=== PATIENT | female | born 1980 | race Caucasian/White ===

== ENCOUNTER 2018-03-31 11:34 | Emergency (ER) | payer BC ==
[~2018-03-31] VITALS: Ht 172.7 cm; Wt 89.0 kg
[2018-03-31] MEDS ORDERED: benzonatate 100mg capsule PO ONE (12:10)
[2018-03-31] MEDS ORDERED: predniSONE 20 mg tablet PO ONE (12:10)
[2018-03-31] MEDS ORDERED: diphenhydrAMINE 25mg capsule PO ONE (12:10)
[2018-03-31] MEDS ORDERED: famotidine 20mg tablet PO ONE (12:10)
[2018-03-31] MEDS ORDERED: BENZ-16 PO (12:31)
[2018-03-31] MEDS ORDERED: DIPH25CA83 PO (12:31)
[2018-03-31] MEDS ORDERED: PRED20TA PO (12:31)
[2018-03-31] MEDS ORDERED: FAMO-128 PO (12:31)
[2018-03-31 12:41] VITALS: BP 110/74
== END 2018-03-31 12:43 | disposition home or self-care (01) ==
LOC: ER 11:35 → EDBD 11:35 → ER 12:43
DX: T78.40XA Allergy, unspecified, initial encounter (principal); J40 Bronchitis, not specified as acute or chronic; F17.200 Nicotine dependence, unspecified, uncomplicated; Z79.899 Other long term (current) drug therapy; X58.XXXA Exposure to other specified factors, initial encounter
CPT/HCPCS: 71046; 99284; J7512; Q0163

== ENCOUNTER 2018-07-25 17:36 | Emergency (ER) | payer BC, MEDICAID ==
[~2018-07-25] VITALS: Ht 172.7 cm; Wt 97.5 kg
[~2018-07-25 17:36] MED LIST: DIPH25CA83 PO; FAMO-128 PO
[2018-07-25 18:02] LABS: BASOPHILS # (AUTO) 0.1 X10'3 (0-0.2); BASOPHILS % (AUTO) 1.1 % (0-1); EOSINOPHILS # (AUTO) 0.1 X10'3 (0-0.9); EOSINOPHILS % (AUTO) 1.4 % (0-6); HEMATOCRIT 33.1 % (35.0-45.0); HEMOGLOBIN 10.9 g/dl (12.0-16.0); LYMPHOCYTES # (AUTO) 2.1 X10'3 (1.1-4.8); LYMPHOCYTES % (AUTO) 25.6 % (21-51); MEAN CORPUSCULAR HEMOGLOBIN 24.5 PG (27.0-31.0); MEAN CORPUSCULAR VOLUME 74.2 FL (78-98); MEAN PLATELET VOLUME 8.1 FL (7.4-10.4); MONOCYTES # (AUTO) 0.6 X10'3 (0-0.9); MONOCYTES % (AUTO) 7.4 % (2-12); NEUTROPHILS # (AUTO) 5.4 X10'3 (1.8-7.7); NEUTROPHILS % (AUTO) 64.5 % (42-75); PLATELET COUNT 337 X10'3 (140-440); RED BLOOD COUNT 4.46 X10'6 (4.20-5.60); RED CELL DISTRIBUTION WIDTH 16.5 % (11.5-14.5); WHITE BLOOD COUNT 8.3 X10'3 (4.5-11.0)
[2018-07-25 18:18] LABS: ALANINE AMINOTRANSFERASE 20 U/L (12-78); ALBUMIN 3.8 G/DL (3.4-5.0); ALKALINE PHOSPHATASE 86 IU/L (46-116); ANION GAP 4 (8-16); ASPARTATE AMINO TRANSFERASE 17 U/L (10-37); BILIRUBIN,TOTAL 0.4 MG/DL (0.1-1.0); BLOOD UREA NITROGEN 10 MG/DL (7-18); BUN/CREATININE RATIO 11.5 (6.6-38.0); CALCIUM 8.8 MG/DL (8.5-10.1); CHLORIDE 105 MMOL/L (99-107); CREATININE 0.87 MG/DL (0.40-0.90); GLUCOSE 95 MG/DL (70-104); POTASSIUM 3.6 MMOL/L (3.5-5.1); SODIUM 139 MMOL/L (135-145); TOTAL PROTEIN 7.6 G/DL (6.4-8.2); eGFR 73 ML/MIN
[2018-07-25 18:32] LABS: PARTIAL THROMBOPLASTIN TIME 29 SECONDS (22-32)
[2018-07-25 19:59] VITALS: BP 130/70
[2018-07-25] MEDS ORDERED: ketorolac trometh inj. 60 MG/2 ML VIAL IM ONE (20:25)
[2018-07-25] MEDS ORDERED: HYDROcodone/acetaminophen 10/325mg tab PO ONE (20:25)
[2018-07-25] MEDS ORDERED: HYDR-4383 PO (20:25)
== END 2018-07-25 20:52 | disposition home or self-care (01) ==
LOC: ER 17:37
DX: R07.89 Other chest pain (principal); F17.200 Nicotine dependence, unspecified, uncomplicated; Z98.51 Tubal ligation status
CPT/HCPCS: 36415; 71045; 80053; 84484; 85025; 85610; 85730; 93005; 96372; 99285; J1885

== ENCOUNTER 2019-10-31 20:06 | Emergency (ER) | payer MEDICAID ==
[~2019-10-31] VITALS: Ht 172.7 cm; Wt 102.7 kg
[~2019-10-31 20:06] MED LIST changes: +HYDR-4383 PO
[2019-10-31 20:18] VITALS: BP 157/67
[2019-10-31] MEDS ORDERED: cyclobenzaprine 10mg tablet PO ONE (21:30)
[2019-10-31] MEDS ORDERED: LIDOcaine 5% patch TP ONE (21:30)
== END 2019-10-31 22:24 | disposition home or self-care (01) ==
LOC: ER 20:06
DX: M54.5 Low back pain (principal); R20.2 Paresthesia of skin; M79.7 Fibromyalgia; Z98.51 Tubal ligation status; Z88.0 Allergy status to penicillin; Z88.1 Allergy status to other antibiotic agents; Z79.899 Other long term (current) drug therapy
CPT/HCPCS: 99283

== ENCOUNTER → 2020-01-12 | Emergency (ER) | payer MEDICAID ==
[~2020-01-12] VITALS: Ht 175.3 cm; Wt 95.5 kg
[~2020-01-12] MED LIST changes: +BENZ-16 PO
[2020-01-12 17:40] VITALS: BP 129/85
== END | disposition home or self-care (01) ==
LOC: ER 17:40
DX: J06.9 Acute upper respiratory infection, unspecified (principal); J45.909 Unspecified asthma, uncomplicated; M79.7 Fibromyalgia; Z98.51 Tubal ligation status; Z88.0 Allergy status to penicillin; Z88.1 Allergy status to other antibiotic agents
CPT/HCPCS: 71045; 99283

== ENCOUNTER 2022-08-31 19:16 | Inpatient (IN) | payer MEDICAID ==
[~2022-08-31] VITALS: Ht 172.7 cm; Wt 104.0 kg
[~2022-08-31 19:16] MED LIST changes: -BENZ-16 PO
[2022-08-31 20:36] LABS: BASOPHILS # (AUTO) 0.1 X10'3 (0-0.2); BASOPHILS % (AUTO) 0.8 % (0-1); EOSINOPHILS # (AUTO) 0.2 X10'3 (0-0.9); EOSINOPHILS % (AUTO) 1.1 % (0-6); HEMOGLOBIN 13.7 g/dl (12.0-16.0); LYMPHOCYTES # (AUTO) 2.4 X10'3 (1.1-4.8); LYMPHOCYTES % (AUTO) 15.8 % (21-51); MEAN CORPUSCULAR HEMOGLOBIN 29.6 PG (27.0-31.0); MEAN CORPUSCULAR HGB CONC 33.4 g/dL (33.0-36.5); MEAN CORPUSCULAR VOLUME 88.6 FL (78-98); MEAN PLATELET VOLUME 8.4 FL (7.4-10.4); MONOCYTES % (AUTO) 6.7 % (2-12); NEUTROPHILS # (AUTO) 11.5 X10'3 (1.8-7.7); NEUTROPHILS % (AUTO) 75.6 % (42-75); PLATELET COUNT 284 X10'3 (140-440); RED BLOOD COUNT 4.62 X10'6 (4.20-5.60); RED CELL DISTRIBUTION WIDTH 13.8 % (11.5-14.5); WHITE BLOOD COUNT 15.2 X10'3 (4.5-11.0)
[2022-08-31 20:39] LABS: URINE HCG NEGATIVE (NEG)
[2022-08-31 20:43] LABS: CLARITY,URINE SLIGHTLY CLOUDY (Clear); COLOR,URINE YELLOW (Yellow); GLUCOSE, URINE NEGATIVE (Neg); KETONES,URINE NEGATIVE (Neg); LEUKOCYTE ESTERASE ,URINE TRACE (Neg); NITRITES, URINE NEGATIVE (Neg); OCCULT BLOOD,URINE MODERATE (Neg); PH,URINE 5.5 (4.8-8.0); PROTEIN,URINE NEGATIVE (Neg); UA COLLECTION TYPE CLN CATCH MIDSTREAM; UROBILINOGEN,URINE 0.2 E.U/dL (0.2-1.0)
[2022-08-31 20:48] LABS: ALANINE AMINOTRANSFERASE 13 U/L (12-78); ALBUMIN 3.7 G/DL (3.4-5.0); ALBUMIN/GLOBULIN RATIO 1.1 (1.1-1.5); ALKALINE PHOSPHATASE 95 IU/L (46-116); ANION GAP 12 (8-16); ASPARTATE AMINO TRANSFERASE 12 U/L (10-37); BILIRUBIN,TOTAL 0.3 MG/DL (0.1-1.0); BLOOD UREA NITROGEN 10 MG/DL (7-18); CALCIUM 8.9 MG/DL (8.5-10.1); CHLORIDE 105 MMOL/L (99-107); GLUCOSE 103 MG/DL (70-104); LIPASE 78 U/L (73-393); POTASSIUM 3.6 MMOL/L (3.5-5.1); SODIUM 139 MMOL/L (135-145); TOTAL CARBON DIOXIDE 22.2 MMOL/L (24-32); TOTAL PROTEIN 7.2 G/DL (6.4-8.2); eGFR 61 ML/MIN
[2022-08-31 20:52] LABS: BACTERIA,URINE FEW /HPF (Neg); MUCUS STRANDS FEW /LPF (Neg); SQUAMOUS EPITHELIAL CELL,UR FEW /LPF (FEW); URIC ACID CRYSTALS FEW /HPF (NEGATIVE); WBC,URINE 0-4 /HPF (0-4)
[2022-09-01] VITALS (15 sets, daily range): BP systolic 87–122; BP diastolic 51–73
[2022-09-01] MEDS ORDERED: ondansetron 4mg rapidly disintigrating tab PO ONE (03:40)
[2022-09-01] MEDS ORDERED: HYDROcodone/acetaminophen 5mg/325mg tablet PO ONE (03:40)
[2022-09-01] MEDS ORDERED: ketorolac trometh inj. 60 MG/2 ML VIAL IM ONE (03:40)
[2022-09-01] MEDS ORDERED: clindamycin 600mg/D5W 50ml 50 ML IV ONE (05:25)
[2022-09-01] MEDS ORDERED: vancomycin/NS 1 GM ADD-VANTAGE 250 ML IV ONE (05:25)
[2022-09-01] MEDS ORDERED: CefTRIAXone/D5W-Rocephin 1gm 50 ML IV ONE (05:25)
[2022-09-01] MEDS ORDERED: acetaminophen 650mg rectal suppository RC PRN (06:00)
[2022-09-01] MEDS ORDERED: bisacodyl 10mg suppository rectal RC PRN (06:00)
[2022-09-01] MEDS ORDERED: magnesium hydroxide 30ml (MOM) UD suspension PO PRN (06:00)
[2022-09-01] MEDS ORDERED: ondansetron/PF 4mg/2ml inj IV PRN ×2 (06:00→17:40)
[2022-09-01] MEDS ORDERED: HYDROcodone/acetaminophen 5mg/325mg tablet PO PRN (06:00)
[2022-09-01] MEDS ORDERED: diphenhydrAMINE 25mg capsule PO PRN (06:00)
[2022-09-01] MEDS ORDERED: morphine 2 MG/ML inj. syringe IV PRN ×2 (06:00→17:40)
[2022-09-01] MEDS ORDERED: ondansetron 4mg rapidly disintigrating tab PO PRN (06:00)
[2022-09-01] MEDS ORDERED: diphenhydrAMINE 50 mg/ml inj IV PRN (06:00)
[2022-09-01] MEDS ORDERED: acetaminophen 325mg tablet PO PRN ×2 (06:00)
[2022-09-01] MEDS ORDERED: mag hydrox/Alum hydrox/simeth 30ml oral suspension PO PRN (06:00)
[2022-09-01] MEDS: normal saline 1000ml 1,000 ML IV SCH ×2 (06:43→15:55)
[2022-09-01] MEDS: morphine 2 MG/ML inj. syringe IV PRN ×3 (07:42→16:50)
[2022-09-01] MEDS: docusate sod 100mg capsule PO SCH ×2 (07:50→20:12)
[2022-09-01 08:12] LABS: APTT 30 SECONDS (22-32)
[2022-09-01 08:23] LABS: MAGNESIUM 2.3 MG/DL (1.5-2.4)
[2022-09-01] MEDS: pantoprazole 40MG/NS 100ML BAG 100 ML IV SCH (08:51)
[2022-09-01] MEDS: CefTRIAXone/D5W-Rocephin 1gm 50 ML IV SCH (10:38)
[2022-09-01] MEDS ORDERED: TOPI50TA24 PO (13:42)
[2022-09-01] MEDS ORDERED: SUMA100T16 PO (13:42)
[2022-09-01] MEDS ORDERED: FERR325T29 PO (13:42)
[2022-09-01] MEDS ORDERED: LAMO200T10 PO (13:42)
[2022-09-01] MEDS ORDERED: CETI10TA14 PO (13:43)
[2022-09-01] MEDS ORDERED: SUMAtriptan 25 MG tablet PO PRN (16:30)
[2022-09-01] MEDS ORDERED: BUPIVAcaine/PF 2.5 mg/ml (0.25%) 30ml vial ONE (17:39)
[2022-09-01] MEDS ORDERED: hydrALAZINE 20mg/ml inj. IV PRN (17:40)
[2022-09-01] MEDS ORDERED: morphine 4 MG/ML inj SYRINge IV PRN (17:40)
[2022-09-01] MEDS ORDERED: ringers solution, lacted 1,000 ML IV SCH (17:40)
[2022-09-01] MEDS ORDERED: HYDROmorphone/PF 0.2 MG/ML SYRINGE IV PRN (17:40)
[2022-09-01] MEDS ORDERED: labetalol 20mg/4ml (5mg/ml) syringe IV PRN (17:40)
--- NOTE | 2022-09-01 17:43 | NUR ---
OR picked up pt around 1730
[2022-09-01] MEDS ORDERED: midazolam 1 mg/ML 2ml injection ONE (17:58)
[2022-09-01] MEDS ORDERED: fentaNYL/PF 50MCG/1 ML 2ML syringe ONE (17:58)
[2022-09-01] MEDS ORDERED: LIDOcaine 1%/PF 5ML 10 MG/ML VIAL ONE (18:08)
[2022-09-01] MEDS ORDERED: ondansetron/PF 4mg/2ml inj ONE (18:09)
[2022-09-01] MEDS ORDERED: rocuronium 10mg/ml inj IV ONE (18:09)
[2022-09-01] MEDS ORDERED: propofol inj 20 ML IV ONE (18:09)
[2022-09-01] MEDS ORDERED: neostigmine methylsulfate 1 MG/ML 10ml vial ONE (18:11)
[2022-09-01] MEDS ORDERED: glycopyrrolate 0.2mg/ml inj ONE (18:12)
[2022-09-01] MEDS ORDERED: acetaminophen 1,000mg/100ml IV 100 ML IV ONE (18:27)
--- NOTE | 2022-09-01 18:45 | NUR ---
Received from OR via [facility]THO BED WITH [facility] , accompanied by Anesthesiologist CASTILLO and report given by Anesthesiolgist. PATIENT WITH 20G PIV IN RIGHT UE RUNNING LR AT 100. 3 LAP SITES TO ABDOMEN AND POKE SITES FROM LOCAL. VSS WITH PVCS PRESENT. MD CHONG AWARE AT THIS TIME. NON VERBAL PAIN SCALE OF 0 USED AT THIS TIME. Addendum: 09/01/22 at 1900 by Robin Al RN, RN Amended: Links added.
[2022-09-01] MEDS: HYDROmorphone/PF 0.2 MG/ML SYRINGE IV PRN ×2 (19:10→19:20)
[2022-09-01] MEDS: HYDROcodone/acetaminophen 10/325mg tab PO PRN (20:13)
[2022-09-01] MEDS ORDERED: temazepam 15mg capsule PO PRN (21:00)
[2022-09-02] VITALS: BP 110/73
[2022-09-02] MEDS: normal saline 1000ml 1,000 ML IV SCH ×2 (00:13→09:14)
[2022-09-02] MEDS: HYDROcodone/acetaminophen 10/325mg tab PO PRN (00:17)
--- NOTE | 2022-09-02 00:21 | NUR ---
MEDICATED FOR PAIN AND WARM BLANKET GIVEN TO THE PT.
[2022-09-02 02:00] VITALS: BP 105/58
--- NOTE | 2022-09-02 04:00 | NUR ---
awoke up with assist to brp voided noted pt just started her peroid pad given mod amount of drainage. after skin care done peripad applied up in the bonilla ambulated 2 laps.
[2022-09-02 06:22] LABS: BASOPHILS % (AUTO) 0.2 % (0-1); EOSINOPHILS % (AUTO) 0 % (0-6); HEMATOCRIT 42.3 % (35.0-45.0); HEMOGLOBIN 13.7 g/dl (12.0-16.0); LYMPHOCYTES # (AUTO) 0.9 X10'3 (1.1-4.8); LYMPHOCYTES % (AUTO) 7.8 % (21-51); MEAN CORPUSCULAR HEMOGLOBIN 29.4 PG (27.0-31.0); MEAN CORPUSCULAR HGB CONC 32.5 g/dL (33.0-36.5); MEAN CORPUSCULAR VOLUME 90.5 FL (78-98); MEAN PLATELET VOLUME 9.6 FL (7.4-10.4); MONOCYTES # (AUTO) 0.2 X10'3 (0-0.9); MONOCYTES % (AUTO) 1.2 % (2-12); NEUTROPHILS # (AUTO) 11.1 X10'3 (1.8-7.7); NEUTROPHILS % (AUTO) 90.8 % (42-75); PLATELET COUNT 294 X10'3 (140-440); RED BLOOD COUNT 4.67 X10'6 (4.20-5.60); RED CELL DISTRIBUTION WIDTH 13.8 % (11.5-14.5); WHITE BLOOD COUNT 12.2 X10'3 (4.5-11.0)
--- NOTE | 2022-09-02 06:34 | NUR ---
Problems reprioritized. Patient report given, questions answered & plan of care reviewed with ALFREDA. Addendum: 09/02/22 at 0635 by Radha Thomas RN Amended: Links added.
[2022-09-02 06:40] LABS: ALANINE AMINOTRANSFERASE 12 U/L (12-78); ALBUMIN 3.3 G/DL (3.4-5.0); ALBUMIN/GLOBULIN RATIO 0.9 (1.1-1.5); ALKALINE PHOSPHATASE 90 IU/L (46-116); ANION GAP 13 (8-16); ASPARTATE AMINO TRANSFERASE 12 U/L (10-37); BILIRUBIN,TOTAL 0.5 MG/DL (0.1-1.0); BLOOD UREA NITROGEN 10 MG/DL (7-18); BUN/CREATININE RATIO 10.5 (6.6-38.0); CALCIUM 8.5 MG/DL (8.5-10.1); CHLORIDE 105 MMOL/L (99-107); CREATININE 0.95 MG/DL (0.40-0.90); GLUCOSE 125 MG/DL (70-104); POTASSIUM 4.3 MMOL/L (3.5-5.1); SODIUM 137 MMOL/L (135-145); TOTAL CARBON DIOXIDE 18.9 MMOL/L (24-32); TOTAL PROTEIN 7.1 G/DL (6.4-8.2); eGFR 64 ML/MIN
[2022-09-02 08:00] VITALS: BP 85/42
[2022-09-02] MEDS ORDERED: ferrous sulfate 325mg tablet PO SCH (08:00)
[2022-09-02] MEDS ORDERED: cetirizine 10mg tablet PO SCH (08:00)
[2022-09-02] MEDS ORDERED: topiramate 25mg tablet PO SCH (08:00)
[2022-09-02] MEDS ORDERED: lamoTRIgine 100mg tablet PO SCH (08:00)
[2022-09-02] MEDS: HYDROmorphone inj. 0.5 MG/0.5 ML DISP.SYRIN IV PRN ×2 (08:03→13:05)
[2022-09-02] MEDS: docusate sod 100mg capsule PO SCH (08:09)
[2022-09-02] MEDS: pantoprazole 40MG/NS 100ML BAG 100 ML IV SCH (08:10)
[2022-09-02] MEDS: CefTRIAXone/D5W-Rocephin 1gm 50 ML IV SCH (09:07)
[2022-09-02] MEDS ORDERED: VILA20TA2 PO (11:55)
[2022-09-02] MEDS ORDERED: OXYC-145 PO (14:50)
--- NOTE | 2022-09-02 15:15 | NUR ---
PATIENT DISCHARGED HOME WITH . PATIENT STATES UNDERSTANDING OF DISCHARGE INSTRUCTIONS. IV TAKEN OUT, NO TELE, ALL BELONGINGS TAKEN FROM ROOM. PT WILL F/U WITH DR MONTES AND CALL FOR APPT
== END 2022-09-02 15:30 | disposition home or self-care (01) | DRG 234 ==
LOC: ER 19:17 → ED HOLD 09-01 06:05 → SUR 3N 09-01 19:50
PROVIDERS: ADMIT Family Medicine; ATTEND Family Medicine
PROC: 0DTJ4ZZ Resection of Appendix, Percutaneous Endoscopic Approach (ICD-10-PCS; principal; 2022-09-01 17:45)
DX: K35.80 Unspecified acute appendicitis (principal); N17.0 Acute kidney failure with tubular necrosis; E87.20 Acidosis, unspecified; E86.0 Dehydration; F17.210 Nicotine dependence, cigarettes, uncomplicated; G89.4 Chronic pain syndrome; Z20.822 Contact with and (suspected) exposure to COVID-19; K21.9 Gastro-esophageal reflux disease without esophagitis; F32.A Depression, unspecified; J45.909 Unspecified asthma, uncomplicated; M79.7 Fibromyalgia; N39.0 Urinary tract infection, site not specified; Z87.440 Personal history of urinary (tract) infections; Z87.442 Personal history of urinary calculi; Z98.51 Tubal ligation status; Z88.0 Allergy status to penicillin; Z88.1 Allergy status to other antibiotic agents; Z79.899 Other long term (current) drug therapy; Z71.6 Tobacco abuse counseling
CPT/HCPCS: 36415; 74176; 80053; 81001; 81025; 83690; 83735; 83880; 84100; 85025; 85730; 87081; 87088; 87811; 96365; 96368; 96372; 99285; A4215; A4615; A4618; A7000; C9113; G0378; J0131; J0696; J1170; J1885; J2250; J2270; J2405; J2704; J2710; J3010; J3370; J3490; J7030